=== PATIENT | male | born 1980 ===

== ENCOUNTER 2018-01-20 05:33 | Emergency (ER) | payer OTHER ==
[~2018-01-20] VITALS: Ht 170.2 cm; Wt 94.3 kg
[~2018-01-20 05:33] MED LIST: LOSARTAN-HCTZ1 EACH
== END 2018-01-20 17:20 | disposition home or self-care (01) ==
LOC: ER 05:33
DX: I10 Essential (primary) hypertension (principal)

== ENCOUNTER 2020-02-24 14:30 | Emergency (ER) | payer OTHER ==
[~2020-02-24] VITALS: Ht 172.7 cm; Wt 90.3 kg
[2020-02-24] MEDS ORDERED: LOSARTAN POTASS50 MG (14:47)
== END 2020-02-24 18:17 | disposition home or self-care (01) ==
LOC: ER 14:30
DX: I16.1 Hypertensive emergency (principal); I10 Essential (primary) hypertension; R07.89 Other chest pain